=== PATIENT | male | born 1955 | race Caucasian/White ===

== ENCOUNTER 2019-11-13 | Day surgery (SDC) | payer OTHER ==
[2019-11-13] MEDS ORDERED: MULTI VIT PO (07:22)
[2019-11-13] MEDS ORDERED: TORADOL PO (10:42)
== END 2019-11-13 13:15 | DRG 352 ==
PROC: 0YU60JZ Supplement Left Inguinal Region with Synthetic Substitute, Open Approach (ICD-10-PCS; principal; 2019-11-13)
DX: K40.30 Unilateral inguinal hernia, with obstruction, without gangrene, not specified as recurrent (principal)
CPT/HCPCS: C9290; J0131